=== PATIENT | male | born 1990 | race Caucasian/White ===

== ENCOUNTER 2019-04-23 16:34 | Emergency (ER) | payer OTHER ==
[~2019-04-23] VITALS: Ht 170.2 cm; Wt 100.0 kg
[2019-04-23] MEDS ORDERED: KETOROLAC TROMETHAMINE 60 MG/2 ML VIAL IM ONE (17:15)
[2019-04-23] MEDS ORDERED: CYCLOBENZAPRINE HCL 10 MG TABLET PO ONE (17:15)
[2019-04-23 18:00] VITALS: BP 133/77
== END 2019-04-23 18:03 | disposition home or self-care (01) ==
LOC: EMS 16:34
DX: S39.012A Strain of muscle, fascia and tendon of lower back, initial encounter (principal); X58.XXXA Exposure to other specified factors, initial encounter; Y93.89 Activity, other specified; Y92.89 Other specified places as the place of occurrence of the external cause; Y99.8 Other external cause status
CPT/HCPCS: 96372; 99283; J1885

== ENCOUNTER 2022-02-07 17:28 | Emergency (ER) | payer OTHER ==
[~2022-02-07] VITALS: Ht 185.4 cm; Wt 100.0 kg
[2022-02-07] MEDS ORDERED: CYCL-397 PO (18:11)
[2022-02-07] MEDS ORDERED: KETOROLAC TROMETHAMINE 30 MG/ML VIAL IM ONE (18:15)
[2022-02-07 18:49] VITALS: BP 127/80
== END 2022-02-07 19:12 | disposition home or self-care (01) ==
LOC: EMS 17:41
DX: M54.9 Dorsalgia, unspecified (principal)
CPT/HCPCS: 96372; 99283; J1885